=== PATIENT | female | born 1940 | race Caucasian/White ===

== ENCOUNTER 2020-09-04 02:11 | Inpatient (IN) | payer MEDICARE ==
[2020-09-04] VITALS (9 sets, daily range): BP systolic 98–134; BP diastolic 48–108; Ht 304.8 cm; Wt 40.9 kg
[~2020-09-04] VITALS: Ht 304.8 cm; Wt 40.9 kg
[2020-09-04] MEDS ORDERED: ULTRAM50 MG PO (02:17)
--- NOTE | 2020-09-04 03:00 | NUR ---
ASKED EPD WHAT HE WANTS ORDERED ON PT, STATES OTHER FACILITY DID A FULL WORK UP AND DOES NOT SEE NEED TO REPEAT ORDERS.
[2020-09-04 07:40] LABS: BASOPHILS 0.9 % (0-2); EOSINOPHILS 0.7 % (0-7); HEMATOCRIT 38.2 % (36.0-48.0); HEMOGLOBIN 12.8 g/dL (12-16); LYMPHOCYTES 49.1 % (15-50); MCH 27.2 pg (26.0-34.0); MCHC 33.4 g/dL (31.0-37.0); MCV 81.4 fL (80.0-100.0); MEAN PLATELET VOLUME 8.2 fL (7.4-10.4); NEUTROPHILS 39.3 % (40-80); PLATELET COUNT 152 10x3/uL (130-400); RDW 16.2 % (11.5-14.5); WBC 6.8 10x3/uL (4.8-10.8)
[2020-09-04 08:04] LABS: CKMB 1.3 U/L (0.0-3.6); CREATINE KINASE 45 UL (21-215); TROPONIN-I 0.031 ng/mL (0.000-0.060)
--- NOTE | 2020-09-04 08:32 | NUR ---
PT TO ROOM FROM ER, TRANSFERRED TO BED. ORIENTED TO ROOM AND UNIT. SITUATED COMFORTABLY. DENIES ANY NEEDS AT THIS TIME.
--- NOTE | 2020-09-04 12:47 | NUR ---
RESTING IN BED, CHANGED DUE TO SPELL OF INCONTINENCE. HUNG IV FLUIDS. AIDE IN ROOM OBTAINING VITALS. WILL CONTINUE POC.
--- NOTE | 2020-09-04 16:43 | MORECARE ---
CASE MANAGEMENT DISCHARGE SUMMARY PATIENT: LOUIS WOO UNIT: [id number] ADM DATE: 09/04/20 AGE: 80 : 42 SEX: F ROOM/BED: D.2222 AUTHOR: NANETTE,DOC PHYSICIAN: REFERRING PHYSICIAN: ANGELY CASEY MD DATE OF SERVICE: 09/04/20 Case Management Discharge Planning Summary COMMENTS ENTERED DATE: 09/04/20 16:38 CT COMMENT TYPE: Discharge Planning REVIEWER: Karmen Hernández CM FAXED ORDER TO [facility]. DCP REVIEW SUMMARY ANTICIPATED D/C DATE: EXPECTED LOS : CASE STATUS: DCP Initiated INITIAL REVIEW: 09/04/2020 INITIAL REVIEWER: Karmen Hernández FINAL DISCHARGE DISPOSITION: : FINAL REVIEWER: FINAL REVIEW DATE: DCP Focus Questions & Answers QUESTION: ANSWER : PATIENT: LOUIS WOO ENCOUNTER: [id number] MEDICAL RECORD#: [id number] ADMISSION DATE: 09/04/2020 DISCHARGE DATE: ATTENDING MD: : AGE: 80 MARITAL STATUS: U DC PLAN ID: [id number] FACILITY: [facility] PRINTED ON: 09/04/20 16:43 CT All edits/amendments must be made on the electronic document DICTATION DATE: 09/04/201642 SAFETY AND HEALTH CONSULTANT: VIKTOR 09/04/201642 RPT#: [id number] DC DATE: STATUS: ADM IN [facility] [address] [place] [address] END OF REPORT
--- NOTE | 2020-09-04 17:25 | NUR ---
PRN MORPHINE FOR PAIN. FAMILY AT BEDSIDE. DENIES ANY NEEDS AT THIS TIME. WILL CONTINUE POC.
[2020-09-04] MEDS ORDERED: REMERON15 MG PO (17:27)
--- NOTE | 2020-09-04 20:35 | MORECARE ---
CASE MANAGEMENT DISCHARGE SUMMARY PATIENT: LOUIS WOO UNIT: [id number] ADM DATE: 09/04/20 AGE: 80 : 42 SEX: F ROOM/BED: D.2222 AUTHOR: NANETTE,DOC PHYSICIAN: REFERRING PHYSICIAN: ANGELY CASEY MD DATE OF SERVICE: 09/04/20 Case Management Discharge Planning Summary COMMENTS ENTERED DATE: 09/04/20 16:38 CT COMMENT TYPE: Discharge Planning REVIEWER: Karmen Hernández CM FAXED ORDER TO [facility]. DCP REVIEW SUMMARY ANTICIPATED D/C DATE: EXPECTED LOS : CASE STATUS: DCP Initiated INITIAL REVIEW: 09/04/2020 INITIAL REVIEWER: Karmen Hernández FINAL DISCHARGE DISPOSITION: : FINAL REVIEWER: FINAL REVIEW DATE: DCP Focus Questions & Answers QUESTION: ANSWER : PATIENT: LOUIS WOO ENCOUNTER: [id number] MEDICAL RECORD#: [id number] ADMISSION DATE: 09/04/2020 DISCHARGE DATE: 09/04/2020 ATTENDING MD: : AGE: 80 MARITAL STATUS: U DC PLAN ID: [id number] FACILITY: [facility] PRINTED ON: 09/04/20 20:35 CT All edits/amendments must be made on the electronic document DICTATION DATE: 09/04/202034 REPAIR TECHNICIAN: VIKTOR 09/04/202034 RPT#: [id number] DC DATE:09/04/20 STATUS: DIS IN [facility] [address] [place] [address] END OF REPORT
--- NOTE | 2020-09-07 09:50 | MORECARE ---
CASE MANAGEMENT DISCHARGE SUMMARY PATIENT: LOUIS WOO UNIT: [id number] ADM DATE: 09/04/20 AGE: 80 : 42 SEX: F ROOM/BED: D.2222 AUTHOR: NANETTE,DOC PHYSICIAN: REFERRING PHYSICIAN: ANGELY CASEY MD DATE OF SERVICE: 09/07/20 Case Management Discharge Planning Summary COMMENTS ENTERED DATE: 09/04/20 16:38 CT COMMENT TYPE: Discharge Planning REVIEWER: Karmen Hernández CM FAXED ORDER TO [facility]. DCP REVIEW SUMMARY ANTICIPATED D/C DATE: EXPECTED LOS : CASE STATUS: DCP Initiated INITIAL REVIEW: 09/04/2020 INITIAL REVIEWER: Karmen Hernández FINAL DISCHARGE DISPOSITION: : FINAL REVIEWER: FINAL REVIEW DATE: DCP Focus Questions & Answers QUESTION: ANSWER : PATIENT: LOUIS WOO ENCOUNTER: [id number] MEDICAL RECORD#: [id number] ADMISSION DATE: 09/04/2020 DISCHARGE DATE: 09/04/2020 ATTENDING MD: : AGE: 80 MARITAL STATUS: U DC PLAN ID: [id number] FACILITY: [facility] PRINTED ON: 09/07/20 9:50 CT All edits/amendments must be made on the electronic document DICTATION DATE: 09/07/20949 CLINICAL APPLICATION CONSULTANT: VIKTOR 09/07/20949 RPT#: [id number] DC DATE:09/04/20 STATUS: DIS IN [facility] [address] [place] [address] END OF REPORT
== END 2020-09-04 20:34 | disposition hospice, inpatient (51) | DRG 441 ==
LOC: D.ER 02:11 → D.MS 07:23
PROVIDERS: Emergency Medicine; ADMIT Emergency Medicine; ATTEND Emergency Medicine
DX: K72.90 Hepatic failure, unspecified without coma (principal); G93.41 Metabolic encephalopathy; C25.0 Malignant neoplasm of head of pancreas; C78.7 Secondary malignant neoplasm of liver and intrahepatic bile duct; C78.00 Secondary malignant neoplasm of unspecified lung; F03.90 Unspecified dementia, unspecified severity, without behavioral disturbance, psychotic disturbance, mood disturbance, and anxiety

== ENCOUNTER 2020-09-04 20:34 | Inpatient (IN) | payer OTHER ==
[~2020-09-04] VITALS: Ht 157.5 cm; Wt 55.3 kg
[2020-09-04 19:05] VITALS: Ht 157.5 cm; Wt 55.3 kg
[~2020-09-04 20:34] MED LIST: REMERON15 MG PO; ULTRAM50 MG PO
--- NOTE | 2020-09-05 04:25 | NUR ---
PT IV INFILTRATED, REMOVED WITH TIP INTACT. HOUSE SUP CONTACT TO PLACE NEW IV ON PT. PT IS RESTLESS AND 5 DIFF TRIES UNSUCCESSFUL IV PLACEMENT PT IS UNCOMFORTABLE, HOSPICE NURSE CONTACTED TO GET IM MED TO HELP PT REST AND GET NEW IV IN PLACE. PT FAM NOTIFIED. MED ADMINISTERED TO PT TO RIGHT [place] SUCCESSFUL OUTCOME. NEW IV PLACE IN RIGHT UPPER ARM, MORPHNE DIRECTOR REPORT IN PLACE. WILL CONT TO MONITOR PT.
--- NOTE | 2020-09-05 04:39 | NUR ---
I have reviewed this patient and I concur with the Shift Assessment completed by the Licensed Practical Nurse today this shift.
--- NOTE | 2020-09-05 09:30 | NUR ---
IN BED WITH EYES CLOSED. BREATHING SHALLOW BUT NON LABORED. NO S/S OF DISTRESS NOTED AT THIS TIME. MORPINE CONTINUOUS COMMUNITY SUPPORT SPECIALIST GOING. IS COMFORTABLE. BED IN LOWEST POSITION, BED RAILS X2, CALL LIGHT WITHIN REACH. WILL CONTINUE POC. ASSESSMENT PERFORMED AT THIS TIME.
--- NOTE | 2020-09-05 11:45 | NUR ---
IN BED WITH EYES CLOSED. BREATHING SHALLOW AND NONLABORED. NO S/S OF DISTRESS NOTED AT THIS TIME. BED IN LOWEST POSITION, BED RAILS X2, CALL LIGHT WITHIN REACH. WILL CONTINUE POC.
[2020-09-05 11:59] VITALS: BP 113/57
--- NOTE | 2020-09-05 13:12 | NUR ---
I have reviewed this patient and I concur with the Shift Assessment completed by the Licensed Practical Nurse today this shift.
--- NOTE | 2020-09-05 15:29 | NUR ---
RECIEVED BED BATH AT THIS TIME
--- NOTE | 2020-09-05 17:11 | NUR ---
TURNED PATIENT IN BED. PLACED TURN Q2 SIGN ON DOOR. FAMILY AT BEDSIDE. WILL CONTINUE POC.
--- NOTE | 2020-09-05 19:00 | NUR ---
BEDSIDE REPORT RECEIVED AND CARE OF PT ASSUMED. PT LYING IN LOW ERVIN'S POSITION ON RIGHT SIDE WITH EYES CLOSED. IV TO RIGHT UPPER ARM PATENT WITH NS INFUSING AT KVO AND CARDIAC/VASCULAR SONOGRAPHER W/ MORPHINE INFUSING AT 0.5 MG / HR. IS AT BEDSIDE.
--- NOTE | 2020-09-05 19:48 | NUR ---
GAVE MORPHINE 2 MG BOLUS PER REQUEST FROM SPOUSE, PT AWOKE AND STATED SHE WAS IN PAIN.
--- NOTE | 2020-09-05 20:20 | NUR ---
GAVE ATIVAN 1 MG IVP FOR AGGITATION.
[2020-09-05 22:16] VITALS: BP 112/42
--- NOTE | 2020-09-05 22:43 | NUR ---
PT TURNED TO LEFT SIDE PROPPED WITH PILLOW. PILLOW PLACED BETWEEN HER KNEES.
[2020-09-06 00:08] VITALS: BP 121/69
[2020-09-06 04:37] VITALS: BP 133/66
--- NOTE | 2020-09-06 08:27 | NUR ---
ASSESSMENT PER FLOW SHEET. PATIENT IS RESTING,WITHOUT SIGNS OF DISTRESS. DOOR OPEN TO MONITOR.
[2020-09-06 09:11] VITALS: BP 123/66
[2020-09-06 16:32] VITALS: BP 91/47
--- NOTE | 2020-09-06 19:00 | NUR ---
BEDSIDE REPORT RECEIVED AND CARE OF PT ASSUMED. PT LYING IN LOW ERVIN'S POSITION WITH EYES CLOSED AND EVEN RESPIRATIONS. IV TO RIGHT UPPER ARM PATENT WITH NS INFUSING AT KVO, AND MORPHINE INFUSING AT 0.5 MG CONTINUOSLY VIA SUPERINTENDENT PIPELINES.
[2020-09-06 22:06] VITALS: BP 100/56
[2020-09-07 08:00] VITALS: BP 129/63
--- NOTE | 2020-09-07 08:45 | NUR ---
PATIENT REPOSITIONED AT THIS TIME TO RIGHT SIDE. NOTED LEFT HIP REDDENED AREA. BLANCHABLE. IV INTACT. CALL LIGHT WITHIN REACH.
--- NOTE | 2020-09-07 10:30 | NUR ---
REPOSITONED PATIENT LEFT SIDE ON PILLOW HALF WAY TO KEEP LEFT AND RIGHT HIP OFF OF THE BED. LEFT HIP IS SLIGHTLY RED DUE TO LAYING ON IT. RIGHT HIP IS STILL RED. IV INTACT. NO COMPLAINTS. CALL LIGHT WITHIN REACH.
--- NOTE | 2020-09-07 13:00 | NUR ---
TURENED PATIENT TO LEFT SIDE AT THIS TIME. IV INTACT. NO COMPLAINTS. CALL LIGHT WITHIN REACH. DOES HAVE PAIN ON TURNING BUT DOES NOT MOAN OR COMPLAIN AFTER TURNING IS OVER. WILL CONTINUE TO MONITOR. FAMILY AT BEDSIDE.
--- NOTE | 2020-09-07 13:54 | NUR ---
REPOSITIONED PATIENT AGAIN AND GAVE A BOLUS OF 2 MG OF MORPHINE AT THIS TIME. MOANING MORE AND SEEMS TO BE IN MORE PAIN ON TURNING. IV INTACT. CALL LIGHT WITHIN REACH.
--- NOTE | 2020-09-07 16:16 | NUR ---
REPOSITIONED PATIENT AGAIN AT THIS TIME. FAMILY STATED THAT THEY ARE REQUESTING PATIENT BE TURNED HOURLY AND ALSO STATED THAT HOSPICE WANTS THAT DONE WELL. FAMILY LEFT BEFORE I COULD SPEAK TO THEM ABOUT PATIENT PAIN WHEN TURNING, BUT SPOKE WITH HOSPICE NURSE WHILE IN THE ROOM TURNING PATIENT AND SHE RECOMMENDED THE PATIENT BE TURNED ONLY EVERY 2 HOURS BC OF PAIN IT CAUSES PATIENT. DUODERM PLACED ON LEFT HIP AND CALF DUE TO REDDENED AREAS ON BONY PROMENICES. WILL CONTINUE TO TURN PATIENT Q 2 ORDERED. PATIENT IV INTACT. CALL LIGHT WITHIN REACH.
--- NOTE | 2020-09-07 18:49 | NUR ---
PATIENT LAYING ON BACK WITH PILLOW UNDER LEFT SIDE. IV INTACT. NO COMPLAINTS OR SIGNS OF DISTRESS. CALL LIGHT WITHIN REACH.
--- NOTE | 2020-09-07 19:00 | NUR ---
BEDSIDE REPORT RECEIVED AND CARE OF PT ASSUMED. PT LYING IN SUPINE POSITION WITH EYES CLOSED AND EASY RESPIRATIONS. O2 IN USE VIA NC AT 2L. IV TO RIGHT UPPER ARM PATENT WITH NS INFUSING AT KVO WITH WINDSHIELD WIPER REPAIRER W/ MORPHINE INFUSING AT 0.5 MG/HR CONTINUOUSLY.
[2020-09-07 19:34] VITALS: BP 110/55
--- NOTE | 2020-09-07 22:55 | NUR ---
PT TURNED TO RIGHT SIDE PROPPED WITH PILLOWS. HEELS BRIDGED.
--- NOTE | 2020-09-08 08:00 | NUR ---
RESTING IN BED PEACEFULLY. BED LOW. WILL CONTINUE TO MONITOR.
--- NOTE | 2020-09-08 08:30 | NUR ---
PATIENT ON LEFT SIDE WITH PILLOW UNDER RIGHT SIDE. RESTING PEACEFULLY.
[2020-09-08 08:45] VITALS: BP 116/55
--- NOTE | 2020-09-08 08:56 | NUR ---
FIDGETING AND RESTLESS. PRN ATIVAN GIVEN PER DR SUNG IN ROOM.
--- NOTE | 2020-09-08 10:30 | NUR ---
PATIENT TURNED TO RIGHT SIDE. PILLOW UNDER LEFT HIP.
--- NOTE | 2020-09-08 11:44 | NUR ---
SECURITY CODE SET UP FOR PATIENT BY PATIENT'S JOSE A VIA PHONE. PLACED ON CHART.
--- NOTE | 2020-09-08 12:30 | NUR ---
PATIENT ON BACK. RESTING PEACEFULLY.
--- NOTE | 2020-09-08 14:14 | MORECARE ---
CASE MANAGEMENT DISCHARGE SUMMARY PATIENT: LOIUS WOO UNIT: [id number] ADM DATE: 09/04/20 AGE: 80 : 42 SEX: F ROOM/BED: D.[facility] AUTHOR: NANETTEDOC PHYSICIAN: REFERRING PHYSICIAN: SARI SUNG MD DATE OF SERVICE: 09/08/20 Case Management Discharge Planning Summary DCP REVIEW SUMMARY ANTICIPATED D/C DATE: EXPECTED LOS : CASE STATUS: DCP Initiated INITIAL REVIEW: 09/04/2020 INITIAL REVIEWER: Karmen Hernández FINAL DISCHARGE DISPOSITION: : FINAL REVIEWER: FINAL REVIEW DATE: DCP [facility] Questions & Answers QUESTION: ANSWER : PATIENT: LOUIS WOO ENCOUNTER: [id number] MEDICAL RECORD#: [id number] ADMISSION DATE: 09/04/2020 DISCHARGE DATE: ATTENDING MD: SARI EDWARDS : AGE: 80 MARITAL STATUS: U DC PLAN ID: [id number] FACILITY: [facility] PRINTED ON: 09/08/20 14:14 CT All edits/amendments must be made on the electronic document DICTATION DATE: 09/08/[address] LIGHT: DM 09/08/20 1414 RPT#: [id number] DC DATE: STATUS: ADM IN [facility] [address] [place] [address] END OF REPORT
--- NOTE | 2020-09-08 14:30 | NUR ---
PATIENT TURNED TO LEFT SIDE. PILLOW UNDER RIGHT HIP.
--- NOTE | 2020-09-08 16:30 | NUR ---
PATIENT IN ROOM. PATIENT TURNED TO RIGHT SIDE. PILLOW UNDER LEFT HIP.
--- NOTE | 2020-09-08 19:00 | NUR ---
PT TURNED FROM RIGHT SIDE ONTO BACK. PT TOLERATED WELL. MOANED SLIGHTLY BUT FELL BACK ASLEEP. IV RIGHT UPPER ARM INFUSING NS @ KVO WITH MORPHINE CONT TEMPORARY ADMINISTRATIVE ASSISTANT. BED ALARM ON. CL IN REACH
[2020-09-08 19:58] VITALS: BP 127/63
--- NOTE | 2020-09-08 21:30 | NUR ---
CAME TO BEDSIDE AT THIS TIME. PT TURNED TO LEFT SIDE. PT MOANING OUT AND IN PAIN WITH TURNING. UNABLE TO GET COMFORTABLE AFTER. GAVE PT 2MG MORPHINE BOLUS AND CHANGED OUT ROLL EDGE MACHINE OPERATOR SYRINGE. PT STILL RESTLESS AND WAS THEN GIVEN ATIVAN. PT BEGAN TO RELAX AFTER ATIVAN. DENIES OTHER NEEDS AT THIS TIME. STATES HE WILL BE LEAVING SOON TO HEAD BACK HOME TO [place].
--- NOTE | 2020-09-08 23:30 | NUR ---
PT TURNED TO RIGHT SIDE AT THIS TIME. TOLERATED WELL. WILL CONTINUE PLAN OF CARE
--- NOTE | 2020-09-09 00:45 | NUR ---
PT BEGAN LABORED BREATHING AT THIS TIME, STILL WITH GURGLING IN CHEST. USED ATROPINE DROPS AND GAVE PT ATIVAN
--- NOTE | 2020-09-09 00:45 | NUR ---
PT AWAKE AND MOANING SLIGHTLY. GAVE MORPHINE BOLUS AT THIS TIME. PT WITH SOME GURGLING IN CHEST, USED ATROPINE DROPS AT THIS TIME AND SAT HOB UP. WILL CONT PLAN OF CARE
--- NOTE | 2020-09-09 01:55 | NUR ---
PT PASSED AT THIS TIME. [facility] NOTIFED. JOHANNA WITH [facility] NOTIFIED
--- NOTE | 2020-09-09 04:00 | NUR ---
HOSPICE NURSE ARRIVED AND PRONOUNCED TIME OF 353. PT STILL ON HIS WAY TO HOSPITAL. ASKED NOT TO RELEASE PT BODY TO HOME UNTIL HE ARRIVES
--- NOTE | 2020-09-09 04:40 | NUR ---
HOSPICE NURSE CALLED HOME OF FAMILYS CHOICE AT THIS TIME. INFORMED HOME THAT HAD STILL NOT ARRIVED AND IT WOULD BE ANOTHER 30 MINUTES. HOME STATES THEY WOULD WAIT 30 MINUTES AND THEN SEND SOMEONE OUT FROM [employer] TO DRIVING INSTRUCTOR PT
--- NOTE | 2020-09-09 06:45 | NUR ---
HOME PICKED PT UP AT THIS TIME. TOOK ALL PERSONAL BELONGINGS HOME. RELEASE OF BODY SIGNED BY .
--- NOTE | 2020-09-09 06:57 | MORECARE ---
CASE MANAGEMENT DISCHARGE SUMMARY PATIENT: LOUIS WOO UNIT: [id number] ADM DATE: 09/04/20 AGE: 80 : 42 SEX: F ROOM/BED: D.[facility] AUTHOR: NANETTE,DOC PHYSICIAN: REFERRING PHYSICIAN: SARI SUNG MD DATE OF SERVICE: 09/09/20 Case Management Discharge Planning Summary DCP REVIEW SUMMARY ANTICIPATED D/C DATE: EXPECTED LOS : CASE STATUS: DCP Initiated INITIAL REVIEW: 09/04/2020 INITIAL REVIEWER: Karmen Hernández FINAL DISCHARGE DISPOSITION: : FINAL REVIEWER: FINAL REVIEW DATE: DCP [facility] Questions & Answers QUESTION: ANSWER : PATIENT: LOUIS WOO ENCOUNTER: [id number] MEDICAL RECORD#: [id number] ADMISSION DATE: 09/04/2020 DISCHARGE DATE: 09/09/2020 ATTENDING MD: SARI EDWARDS : AGE: 80 MARITAL STATUS: U DC PLAN ID: [id number] FACILITY: [facility] PRINTED ON: 09/09/20 6:57 CT All edits/amendments must be made on the electronic document DICTATION DATE: 09/09/20656 RESEARCH PHYSIOLOGIST: DM 09/09/20 0657 RPT#: [id number] DC DATE:09/09/20 STATUS: DIS IN [facility] [address] [place] [address] END OF REPORT
--- NOTE | 2020-09-10 10:39 | MORECARE ---
CASE MANAGEMENT DISCHARGE SUMMARY PATIENT: LOUIS WOO UNIT: [id number] ADM DATE: 09/04/20 AGE: 80 : 42 SEX: F ROOM/BED: D.[facility] AUTHOR: NANETTE,DOC PHYSICIAN: REFERRING PHYSICIAN: SARI SUNG MD DATE OF SERVICE: 09/10/20 Case Management Discharge Planning Summary DCP REVIEW SUMMARY ANTICIPATED D/C DATE: EXPECTED LOS : CASE STATUS: DCP Initiated INITIAL REVIEW: 09/04/2020 INITIAL REVIEWER: Karmen Hernández FINAL DISCHARGE DISPOSITION: : FINAL REVIEWER: FINAL REVIEW DATE: DCP [facility] Questions & Answers QUESTION: ANSWER : PATIENT: LOUIS WOO ENCOUNTER: [id number] MEDICAL RECORD#: [id number] ADMISSION DATE: 09/04/2020 DISCHARGE DATE: 09/09/2020 ATTENDING MD: SARI EDWARDS : AGE: 80 MARITAL STATUS: U DC PLAN ID: [id number] FACILITY: [facility] PRINTED ON: 09/10/20 10:39 CT All edits/amendments must be made on the electronic document DICTATION DATE: 09/10/20 1039 CHIEF LIBRARIAN EXTENSION DEPARTMENT: DM 09/10/20 1039 RPT#: [id number] DC DATE:09/09/20 STATUS: DIS IN [facility] [address] [place] [address] END OF REPORT
== END 2020-09-09 06:45 | DRG 951 ==
LOC: D.MS 20:34
PROVIDERS: ADMIT Legal Medicine; ATTEND Legal Medicine
DX: Z51.5 Encounter for palliative care (principal)